=== PATIENT | male | born 1985 | race Two or more races ===

== ENCOUNTER 2020-12-30 12:01 | Emergency (ER) | payer OTHER ==
[~2020-12-30] VITALS: Ht 167.6 cm; Wt 79.4 kg
[2020-12-31] MEDS ORDERED: CIPRO500 MG PO (08:10)
[2020-12-31] MEDS ORDERED: INTESTINEX680 M1 PO (08:10)
[2020-12-31] MEDS ORDERED: PEPCID20 MG PO (08:10)
[2020-12-31] MEDS ORDERED: METRONIDAZOLE500 MG PO (08:10)
[2020-12-31] MEDS ORDERED: ZOFRAN4 MG PO ×2 (08:18)
== END 2020-12-30 16:43 | disposition left against medical advice (07) ==
LOC: ER 12:01
DX: Z53.20 Procedure and treatment not carried out because of patient's decision for unspecified reasons (principal)

== ENCOUNTER 2020-12-30 18:51 | Emergency (ER) | payer OTHER ==
[~2020-12-30] VITALS: Ht 167.6 cm; Wt 76.2 kg
[2020-12-31] MEDS ORDERED: INTESTINEX680 M1 PO (08:10)
[2020-12-31] MEDS ORDERED: CIPRO500 MG PO (08:10)
[2020-12-31] MEDS ORDERED: METRONIDAZOLE500 MG PO (08:10)
[2020-12-31] MEDS ORDERED: PEPCID20 MG PO (08:10)
[2020-12-31] MEDS ORDERED: ZOFRAN4 MG PO ×2 (08:18)
== END 2020-12-31 08:44 | disposition home or self-care (01) ==
LOC: ER 18:51
DX: K52.9 Noninfective gastroenteritis and colitis, unspecified (principal); K80.20 Calculus of gallbladder without cholecystitis without obstruction; Z03.818 Encounter for observation for suspected exposure to other biological agents ruled out

== ENCOUNTER 2021-06-24 15:05 | Emergency (ER) | payer OTHER ==
[~2021-06-24] VITALS: Ht 170.2 cm; Wt 65.8 kg
[~2021-06-24 15:05] MED LIST: CIPRO500 MG PO; INTESTINEX680 M1 PO; METRONIDAZOLE500 MG PO; PEPCID20 MG PO; ZOFRAN4 MG PO
== END 2021-06-24 21:04 | disposition home or self-care (01) ==
LOC: ER 15:05
DX: E86.0 Dehydration (principal)

== ENCOUNTER 2021-06-29 07:16 | Outpatient (CLI) | payer OTHER | END 2021-06-29 07:29 | disposition home or self-care (01) | LOC: SONOGRAMA 07:16 | PROVIDERS: ATTEND Internal Medicine | DX: R10.84 Generalized abdominal pain (principal) ==

== ENCOUNTER 2021-06-29 14:59 | Inpatient (IN) | payer OTHER ==
[~2021-06-29] VITALS: Ht 170.2 cm; Wt 520.7 kg
== END 2021-07-03 17:50 | disposition home or self-care (01) | DRG 444 ==
LOC: ER 14:59 → SURH 06-30 14:45 → MEDJ 07-02 20:31
PROVIDERS: ADMIT Internal Medicine; ATTEND Internal Medicine
PROC: 8E0ZXY6 Isolation (ICD-10-PCS; principal; 2021-07-02)
DX: K81.0 Acute cholecystitis (principal); U07.1 COVID-19; D18.03 Hemangioma of intra-abdominal structures; E86.0 Dehydration; Z20.822 Contact with and (suspected) exposure to COVID-19; Z53.8 Procedure and treatment not carried out for other reasons